=== PATIENT | female | born 1975 | race Caucasian/White ===

== ENCOUNTER 2020-08-28 00:40 | Emergency (ER) | payer BC, SELFPAY ==
[2020-08-28 00:41] VITALS: BP 132/82; PULSE 83; RESP 18; TEMP 36.2; O2SAT 96; BMI 34.2
--- NOTE | 2020-08-28 01:32 | ED.DCSUM_ITS ---
History of Present Illness Chief Complaint: Flank Pain Informant: Patient - Abdominal Pain/Flank Pain Onset: Hours - 3 Context: Gradual Onset Timing: Continuous, Waxes and wanes Quality: Aching Location: RUQ - And radiating into back on the right Current Severity: Moderate Maximum Severity: Severe Worsened by: Nothing Relieved by: Nothing - Nausea/Vomiting/Emesis GI Symptom: Nausea. Negative for: Vomiting - Diarrhea/Melena/Hematochezia GI Symptom: Negative for: Diarrhea, Melena, Hematochezia Associated Symptoms: Negative for: Dysuria, Frequency, Hematuria, Urgency Narrative: Patient started having colicky right flank pain several hours prior to arrival. Never had this before. No history of abdominal surgeries or other medical illness. She had a bowl of chili with cheese and sour cream on it around 2 or 3 hours prior to the onset. No urinary symptoms. No fevers or chills, shortness of breath, cough, she presents during the national coronavirus emergency declaration/pandemic. She denies any known contact with anyone infected with COVID-19. She denies traveling out of the immediate area recently. Past Medical History - Allergies and Home Meds Allergies/Adverse Reactions: Allergies No Known Allergies Allergy (Verified 08/28/20 00:41) Primary Care Physician: Emre Sierra MD [Primary Care Provider] - Past Medical History: None Lives: Spouse/ Significant Other Smoking Status: Never smoker Alcohol: Occasional Review of Systems General: Denies: Chills, Fever, Sweats Eyes: Denies: Visual changes - bilaterally, Diplopia ENT: Denies: Rhinorrhea, Sore throat Cardiovascular: Denies: Chest pain, Palpitations Respiratory: Denies: Dyspnea, Cough, Dyspnea on exertion Gastrointestinal: Reports: Abdominal pain, Nausea. Denies: Vomiting, Diarrhea, Melena, Hematochezia Genitourinary: Denies: Dysuria, Hematuria, Frequency Musculoskeletal: Reports: Back pain. Denies: Swelling, Extremity Pain Skin: Denies: Rash, Wounds Neurological: Denies: Headache, Weakness, Numbness Physical Exam Vital Signs/Narrative: Vital Signs Temp Pulse Resp BP Pulse Ox 08/28/20 00:41 97.2 F L 83 18 132/82 H 96 Inital Vital Signs reviewed: Yes General: Well nourished, Well developed, No Acute Distress Head: Normocephalic, Atraumatic Eyes: Perrl, EOMI ENT: Moist mucous membranes, No rhinorrhea Neck: Supple, Nontender Cardiovascular: Regular rate, Regular rhythm, No murmurs Respiratory: No distress, CTA bilaterally, Chest nontender Abdomen: Soft, Nondistended, Normal bowel sounds, Tender - Right upper quadrant, otherwise nontender. Negative for: Guarding, Rebound tenderness, Pulsatile mass Back: Nontender, Normal Inspection. Negative for: CVA tenderness Extremities: Nontender, No edema Skin: Normal color, No rash Neurological: Alert, Oriented x3, Cranial nerves II-XII grossly intact, Normal Strength, Normal Sensation, Normal Gait Psychological: Normal affect, Normal Mood Diagnostic/Tx/Re-eval Laboratory Results 08/28/20 08/28/20 08/28/20 00:50 00:50 01:40 WBC 7.9 RBC 4.34 Hgb 10.7 L Hct 35.2 L MCV 81.1 MCH 24.7 L MCHC 30.4 L RDW Std Deviation 45.8 H RDW Coeff of Gabi 15.5 H Plt Count 295 MPV 10.3 Immature Gran % (Auto) 0.100 Neut % (Auto) 47.2 Lymph % (Auto) 42.0 H [place] % (Auto) 8.4 Eos % (Auto) 1.8 Baso % (Auto) 0.5 Absolute Neuts (auto) 3.7 Absolute Lymphs (auto) 3.33 Nucleated RBC % 0 Sodium 140 Potassium 3.9 Chloride 109 H Carbon Dioxide 25.0 Anion Gap 6 BUN 12 Creatinine 0.93 Estim Creat Clear Calc 69.46 Est GFR (MDRD) Af Amer 84 Est GFR (MDRD) Non-Af 70 BUN/Creatinine Ratio 12.9 Glucose 106 Calcium 8.8 Total Bilirubin 0.20 AST 11 L ALT 13 Alkaline Phosphatase 55 Total Protein 7.7 Albumin 3.9 Globulin 3.8 Albumin/Globulin Ratio 1.0 Lipase 289 Urine Color Yellow Urine Clarity Clear Urine pH 5.0 Ur Specific [place] 1.030 Urine Protein 15 H Urine Glucose (UA) Normal Urine Ketones Negative Urine Occult Blood Negative Urine Nitrite Negative Urine Bilirubin Negative Urine Urobilinogen Normal Ur Leukocyte Esterase Negative Urine RBC 0 SEEN Urine WBC 0 SEEN Ur Squamous Epith Cells 0-5 SEEN Urine Bacteria 0 SEEN Urine Mucus 2+ - Medical Decision Making Patient having symptoms concerning for biliary colic. Certainly acute cholecystitis is in the differential diagnosis. Ultrasound is not here when the patient presented, so I did a bedside ultrasound, which confirmed a positive sonographic Mancilla's initially in addition to a gallbladder containing multiple stones that appear to be small bilirubin stones. I did not see any in the neck of the gallbladder, the gallbladder wall was grossly within normal limits and there was no pericholecystic fluid seen, however this is a limited screening bedside ultrasound. Her symptoms were treated, her labs are unremarkable/normal with no leukocytosis or signs of a leftward shift. Initially after 2 doses of morphine, she was still in discomfort although improved. I discussed with surgery Dr. Feuntes. Ultrasound will come in in the morning, so at that point if we observed her in the ED we would be able to obtain one if her pain did not resolve. Surgery recommended this if her pain did not resolve, however eventually, her pain did resolve, and on reevaluation, her abdomen is soft nontender and her Mancilla sign is resolved as it is completely her right upper quadrant tenderness. Now she feels fine. Therefore I think she is safe to be discharged home with a fat-free diet and close outpatient surgical follow-up, they are comfortable with this plan and getting an ultrasound as an outpatient which was set up for them. We discussed reasons to return as well. ED Disposition - Plan for ED Patient: Disposition: Home or Assisted Living Diagnosis: Cholelithiasis, Biliary colic Instructions: ED Gallstones with Biliary Colic, ED Low Fat Diet Referrals: Conrado Fuentes MD [STAFF PHYSICIAN] - As soon as possible (call for appt) Additional Instructions: Try to avoid fats in the diet, including animal meats, cheese, fried foods, milk fat. If you start having severe symptoms of that will not let up, certainly return to the ER for reevaluation and repeat labs.
[2020-08-28] MEDS: Ketorolac 30 MG/ML Syringe IV (01:42)
[2020-08-28] MEDS: Morphine 4 MG/ML Syringe IV ×2 (01:43→02:31)
[2020-08-28] MEDS: 0.9% Normal Saline 1,000 ML 125 ML IV (01:43)
[2020-08-28] MEDS: Ondansetron 4 MG/2 ML Vial IV (01:43)
[2020-08-28 01:45] LABS: Absolute Lymphocyte Count 3.33 X10^3/uL (0.83-4.51); Absolute Neutrophil Count 3.7 X10^3/uL (2.0-7.7); Basophil# 0.04 X10^3/uL; Basophil% 0.5 % (0-1); Eosinophil# 0.14 X10^3/uL; Eosinophils% 1.8 % (0-5); Hematocrit 35.2 % (37-47); Hemoglobin 10.7 g/dL (12.0-15.0); Lymphocyte # 3.33 X10^3/ul (4.0); Mean Corp Hgb Conc 30.4 g/dL (32-36); Mean Corpuscular Hgb 24.7 pg (27.0-32.0); Mean Corpuscular Volume 81.1 fL (81-99); Mean Platelet Vol. 10.3 fl (6.2-12.0); Monocyte# 0.67 X10^3/uL; Monocyte% 8.4 % (0-10); NRBC Flagged by Analyzer 0 % (0-5); Neutrophil # 3.74 X10^3/uL (2.7-7.7); Neutrophil % 47.2 % (47-70); Platelet Count 295 K/mm3 (150-450); RBC Distribution Width CV 15.5 % (11.6-14.6); RBC Distribution Width SD 45.8 fl (35.1-43.9); Red Blood Count 4.34 M/mm3 (4.2-5.4); White Blood Count 7.9 K/mm3 (4.4-11.0)
[2020-08-28 01:47] LABS: Bacteria 0 SEEN /hpf (None Seen); White Blood Cells 0 SEEN /hpf (0-5)
[2020-08-28 01:48] LABS: Color, Urine Yellow (Yellow); Glucose, Dipstick Normal (Normal); Ketone-Dipstick Negative (Negative); Leukocyte Esterase-Dipstick Negative /ul (Negative); Nitrite-Dipstick Negative (Negative); Occult Blood-Urine Negative /ul (Negative); Protein-Dipstick 15 mg/dl (Negative); Urine Bilirubin Dipstick Negative (Negative); Urine Clarity Clear (Clear); Urine Urobilinogen Normal (Normal)
[2020-08-28 01:57] LABS: AST(SGOT) 11 U/L (15-37); Alanine Aminotransfer ALT/SGPT 13 U/L (13-56); Albumin, Serum 3.9 g/dL (3.2-5.0); Alkaline Phosphatase 55 U/L (45-117); Anion Gap 6 (5-15); BUN 12 mg/dL (7-18); BUN/Creat Ratio 12.9 RATIO (10-20); Calcium,Total 8.8 mg/dL (8.5-10.1); Chloride 109 mmol/L (98-107); Creatinine, Serum 0.93 mg/dL (0.55-1.02); EST Glomerular Filtration Rate 70 mL/min (>60); Est Glom Filt Rate - Afr Amer 84 mL/min (>60); Estimated Creatinine Clearance 69.46 ml/min; Globulin 3.8 g/dL (2.2-4.2); Glucose 106 mg/dL (74-106); Lipase 289 U/L (73-393); Potassium 3.9 mmol/L (3.5-5.1); Protein, Total 7.7 g/dL (6.4-8.2); Sodium Level 140 mmol/L (136-145)
[2020-08-28 02:01] LABS: Mucous, Urine 2+ /hpf (<or=2+); Squamous Epithelial Cells - UA 0-5 SEEN /hpf (5-10)
[2020-08-28 02:02] LABS: Red Blood Cells-Urine 0 SEEN /hpf (0-5)
[2020-08-28 02:33] VITALS: BP 131/85; PULSE 74; RESP 18
[2020-08-28 02:58] VITALS: BP 117/72; PULSE 68; RESP 18
[2020-08-28] MEDS: HYDROmorphone 0.5 MG/0.5 ML SYRINGE IV (03:15)
[2020-08-28 03:18] VITALS: BP 115/75; PULSE 80; RESP 18
[2020-08-28 04:38] VITALS: RESP 16
== END 2020-08-28 04:42 | disposition home or self-care (01) ==
PROVIDERS: Emergency Provider Emergency Medicine
DX: K80.70 Calculus of gallbladder and bile duct without cholecystitis without obstruction (principal)
CPT/HCPCS: 80053; 81001; 83690; 85025; 96361; 96374; 96375; 96376; 99282; J7030; A4216; J2405

== ENCOUNTER → 2020-08-28 11:20 | Outpatient (CLI) | payer BC, SELFPAY ==
[2020-08-28 00:41] VITALS: BMI 34.2
--- NOTE | 2020-08-28 11:20 | US_ITS ---
STUDY: ABDOMINAL ULTRASOUND - RIGHT UPPER QUADRANT REASON FOR VISIT: Female, 44 years old RUQ PAIN TECHNIQUE: Ultrasound evaluation of the right upper quadrant was performed with real-time and static negron-scale imaging. TECHNICAL QUALITY: Adequate. COMPARISON: None. FINDINGS: Liver: The liver measures 16.7 cm. There is increased echogenicity consistent with fatty infiltration. The bile ducts are within normal limits. There is hepatic color flow. The direction of portal flow is hepatopetal. There is no demonstrated mass lesion. Gallbladder: Normal distended gallbladder. The gallbladder wall measures 2.6 mm. There is a negative sonographic Mancilla''s sign. There is no pericholecystic fluid. There are multiple echogenic structures within the gallbladder, consistent with multiple gallstones. Common Bile Duct (C.B.D.): The common bile duct measures 8.3 mm. Pancreas: Normal size of the head, body and tail of the pancreas. There is normal echogenicity of the pancreas. There is no demonstrated pancreatic mass or cyst. Right Kidney: Normal size of the right kidney. The right kidney measures 12.3 cm. Normal renal cortex. The right cortex measures 2.5 cm. There is no demonstrated renal mass or cyst. There is no right hydronephrosis. US/Gallbladder IMPRESSION: Multiple gallstones without evidence of acute cholecystitis Electronically Signed: Sabas Ahmadi DO at 12:36 EDT Tel , Service support ,
== END ==
PROVIDERS: Referring Provider Emergency Medicine; Visit Provider Emergency Medicine
DX: K80.20 Calculus of gallbladder without cholecystitis without obstruction (principal)
CPT/HCPCS: 76705

== ENCOUNTER 2020-09-08 10:48 | Day surgery (SDC) | payer BC, SELFPAY ==
[2020-09-02 08:32] VITALS: BMI 32.9
--- NOTE | 2020-09-07 08:22 | EKG12_ITS ---
Test Reason : PREOP Blood Pressure : / mmHG Vent. Rate : 071 BPM Atrial Rate : 071 BPM P-R Int : 164 ms QRS Dur : 086 ms QT Int : 390 ms P-R-T Axes : 010 006 023 degrees QTc Int : 423 ms Normal sinus rhythm Normal ECG Confirmed by PRISCLILA VORA, APOLINAR ([id number]), film or videotape editor KIRILL RAMIREZ ([id number]) on 09/08/2020 10:44:07 AM Referred By: Conrado Fuentes Confirmed By:APOLINAR WELLS MD
[2020-09-08] VITALS (12 sets, daily range): BP systolic 106–132; BP diastolic 59–90; PULSE 64–102; RESP 16; TEMP 36.1–36.5; O2SAT 94–100; BMI 32.5
--- NOTE | 2020-09-08 | GALL_PTH ---
PATIENT: LYNNE NOLEN LOC: [facility] U#:[id number] AGE/SX: 45/F ROOM: RE09/08/[address]: Dr. Conrado Fuentes MD : 1975 BED: DIS: 09/08/2020 SPEC #: [id number] RECD: 09/08/20 14:19 STATUS: AZUL LAURENCE #: [id number] JOSH: 09/08/20 00:[address]: Conrado Fuentes DEPT: SURGICAL PATHOLOGY RECD BY: Laura Inman ENTERED: 09/09/20 07:45 SP TYPE: ERIC ACEVEDO DR: Dr. Emre Sierra MD Tissues: Gallbladder, NOS Procedures: Surgery Specimen Level III HEADER OPERATION: Laparoscopic cholecystectomy with IOC PRE-OP DIAGNOSIS: Calculus of gallbladder TISSUE SUBMITTED: Gallbladder MICROSCOPIC DIAGNOSIS Gallbladder, cholecystectomy: Chronic cholecystitis and cholelithiasis. A pericystic lymph node with reactive changes. SJ:oracio 09/10/20 MICROSCOPIC DESCRIPTION Slides are reviewed. GROSS DESCRIPTION Received is one container labeled with the patient's name and designated gallbladder. The specimen consists of a gallbladder measuring 12 cm in length and up to 4 cm in diameter. The external surface is pink-martinez, smooth and glistening for the most part. Focally it is granular, hemorrhagic and contains cautery artifact. The gallbladder contains green-yellow mucoid bile and multiple martinez-brown, multifaceted stones measuring in aggregate 8 x 7 x 2.5 cm and 0.6 to 1 cm in greatest dimension. The mucosa is bile-stained and without any mass lesions. The gallbladder wall measures up to 0.2 cm in thickness. Also present close to the cystic duct is an ovoid piece of tissue, a possible lymph node, measuring 1 cm in greatest dimension. Non Licensed Operator sections from the gallbladder and the cystic duct including entire lymph node are submitted in one cassette. / ANU:oracio 09/09/20 TC:3 CPT: 64539
--- NOTE | 2020-09-08 11:00 | HP_ITS ---
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 Conrado Fuentes MD) Smoking Status: Never smoker HPI HPI HPI: LYNNE NOLEN, is a 45 F who presents to the office today for HPI HPI Surgical H&P: Yes HPI: LYNNE NOLEN, is a 45 F who presents to the office today for right upper quadrant pain. The patient was recently in the emergency room with right upper quadrant pain. She had had no symptoms before this. She reported the pain radiated to her back. She did not have any nausea or vomiting and the pain resolved. She has had some twinges of pain since being discharged but no pain like she did that day. She has been eating bland foods. She describes no fevers or chills or cough or shortness of breath. ROS General General: No weight change, appetite or fatigue HEENT HEENT: No difficulty swallowing, eye injury or eye surgery Endo Endocrine: No thyroid disease or diabetes mellitus Skin Skin: No rash or changing moles Musc Musculoskeletal: No back problems, arthritis or rheumatoid arthritis Cardio Cardiovascular: No murmur, pacemaker, heart disease, atrial fibrillation, high blood pressure, heart attack, heart stent, palpitations, shortness of breat with exertion or chest pain Psych Psychiatric: No depression or anxiety Resp Respiratory: No shortness of breath, No sleep apnea, No cough, No COPD, No asthma, No emphysema, No wheezing Gastro Gastrointestinal: Yes abdominal pain, No nausea or vomiting, No diarrhea, No constipation, No blood in stool, No acid reflux, Yes hemorrhoids, No ulcers, Yes gallbladder problem, No black,tarry stools Tay Hematologic: No blood thinners, No blood disorders Neuro Neurologic: Yes system reviewed and no additional complaints, except as docu Exam Const General: cooperative Orientation: alert, oriented x3 HENMT Head: normal to inspection Ears: hearing grossly normal bilaterally Eyes General: appearance normal, both eyes and all related structures Visual Perez: normal visual perez by confrontation Neck Neck: normal visual inspection Chest Chest palpation & inspection: normal inspection of the chest Resp Effort & Inspection: normal respiratory effort Auscultation: clear to auscultation bilaterally Cardio Rate: regular rate Rhythm: regular rhythm Heart Sounds: no murmurs GI Inspection: non-distended Palpation: soft, nontender Musc Cervical Spine: normal cervical lordosis, cervical ROM normal Skin General: no rashes or lesions noted Neuro General: alert, oriented x3 Cranial Nerves: CN's II-XI intact bilaterally Cognition: normal cognition Extrem General: normal to inspection, full ROM Psych Appearance: grossly normal Affect: normal affect Assessment & Plan Problems 1. Calculus of gallbladder without cholecystitis without obstruction K80.20 Plan The patient does not have any pain currently but she was in the emergency room recently with right upper quadrant pain. She had an ultrasound which showed no gallbladder wall thickening but copious amount of gallstones in the gallbladder. I discussed laparoscopic cholecystectomy with her. I discussed the procedure in detail with the patient. I discussed the risks, benefits, and alternatives of the procedure. I discussed the risks including but not limited to bleeding, infection, injury to surrounding organs such as the liver, bile duct, bowels. I did discuss the possibility of having to convert to an open procedure as well as the possibility that if any injuries occurred this may necessitate further surgery at a tertiary care center. We discussed the current risks associated with COVID-19. While it is understood that there is a community spread of COVID-19, the risk of navya COVID-19 while at [facility] ([facility]) is very low; however, the risk cannot be completely mitigated because of the community spread of the disease. We discussed in detail the risk of exposure to and/or potential harm posed by the COVID-19 virus with having a surgery/procedure at this time versus the risk of delaying the surgery/procedure. It is not possible to know either the risk of delaying the surgery or procedure or chance of getting an infection with perfect accuracy, but a joint decision was made to proceed at this time with the scheduled surgery/procedure as indicated on the consent form. Patient was notified that we will need to comply with any screening or testing [facility] wishes to perform or that surgery may be delayed for any positive results. Conrado Fuentes MD Pager: [facility] [address] [place] [address] [address] [place] [address] Office: Coding Level of Care Code Off vis,new,level 4 Diagnoses Calculus of gallbladder without cholecystitis without obstruction K80.20 ??Cholelithiasis location: gallbladder ??Cholecystitis presence: without cholecystitis ??Biliary obstruction: without biliary obstruction I have re-examined the patient. There are no clinical changes since date of exam.
[2020-09-08 11:21] LABS: Internal QC Validated? YES +Cl - CLEAR BKGD; Pregnancy, Urine Negative Negative
[2020-09-08] MEDS: Lactated Ringers 1,000 ML 100 ML IV ×2 (11:33→15:02)
[2020-09-08] MEDS: Cefotetan 2 GM in 0.9% NS 100 ML IV (12:05)
--- NOTE | 2020-09-08 12:14 | RAD_ITS ---
STUDY: INTRAOPERATIVE CHOLANGIOGRAM. REASON FOR EXAM: Female, 45 years old. Cholangiogram, pain FLUOROSCOPY TIME (if supplied): ( 15 seconds ) minutes/seconds. A cine loop of 101 images were submitted. TECHNIQUE: Intraoperative cholangiogram was performed by the surgeon. Imaging was submitted. COMPARISON: None. FINDINGS: The visualized intra and extrahepatic biliary ducts are unremarkable. No intraluminal filling defect is seen. There is free flow of contrast into the duodenum. RAD/Cholangiogram/ O R,Initial IMPRESSION: Unremarkable intraoperative cholangiogram. Electronically Signed: Joaquin Galan, at 15:47 EST , Service support ,
[2020-09-08] MEDS: Bupiv/Epi 0.25% 30 ML Vial (12:45)
--- NOTE | 2020-09-08 13:26 | PCM.OPRPT ---
Problem List (1) Cholelithiasis Status: Acute Qualifiers: Cholelithiasis location: gallbladder Cholecystitis presence: without cholecystitis Biliary obstruction: without biliary obstruction Qualified Code(s): K80.20 - Calculus of gallbladder without cholecystitis without obstruction Report of Operation Date of Procedure: 09/08/20 Pre-Operative Diagnosis: Cholelithiasis and biliary colic Post-Operative Diagnosis: Same Surgery/Procedure Performed:: Laparoscopic cholecystectomy with cholangiogram Specimen's removed: Gallbladder and contents Description of Procedure: After obtaining informed consent patient was brought back to the operating room. General anesthesia was induced. The abdomen was prepped and draped in usual sterile fashion. A small midline incision was made superior to the umbilicus and deepened to the level of fascia. The fascia was elevated and incised. Next the peritoneum was elevated and incised in the same fashion. Finger sweep was performed and the Schaffer trocar was placed into the abdomen. The balloon was inflated. The abdomen was inflated to 15 mmHg. Next a camera was introduced into the abdomen and the abdomen was inspected. Next under direct visualization three 5-mm ports were placed one subxiphoid and 2 subcostal. Next the gallbladder was elevated and retracted toward the right shoulder. The peritoneum was stripped from the gallbladder. The infundibulum was located and retracted laterally. Next the triangle of Calot was dissected and the cystic duct and cystic artery were identified. Cholangiograms were performed. The Shaw clamp was used to clamp across the infundibulum and the catheter needle was inserted into the gallbladder. There was no flow with the Shaw catheter. Next a small yesi was made in the right upper quadrant and a Ranfac catheter was placed into the abdomen and a clip was placed in the proximal cystic duct and a small yesi was made in the cystic duct and the Ranfac catheter was placed through this and a clamp was placed. There was good flushing with the Ranfac catheter. Under fluoroscopy contrast was instilled into the gallbladder and the common duct, cystic duct as well as proximal hepatic ducts were identified. There was good filling of the duodenum. There were no filling defects noted in the common bile duct. The catheter was removed and the infundibulum was grasped once more. Three hemolock clips were placed across the cystic duct. The cystic duct was then divided leaving 2 clips on the stump. The cystic artery was clipped and divided in the same fashion. The hook cautery was then used to take the gallbladder off of the gallbladder bed. Hemostasis was obtained. Gallbladder fossa was irrigated and no active bleeding or bile leakage was noted. Next the camera was introduced in the subxiphoid port. An Endopouch bag was placed through the umbilical port and the gallbladder was placed into it. The gallbladder was then removed through the umbilical incision. The camera was then reinserted through the umbilical port. The gallbladder fossa was inspected once more and noted to be hemostatic with no leaking bile. The abdomen was suctioned dry. The 5 mm ports were removed under direct visualization. The umbilical port was then removed and the air was removed from the abdomen. Next using an 0 Vicryl suture the umbilical fascia was closed in a [id number] fashion. The umbilical port site was irrigated local anesthetic was administered to all the incisions. All the incisions were closed with interrupted subcuticular 4-0 Monocryl sutures followed by Steri-Strips and dressings. The patient was awoken and taken to PACU in stable condition. - Admit VTE Documentation VTE Mechan Device Prophylaxis: SCD's
--- NOTE | 2020-09-08 13:29 | PCM.DC.GB ---
Discharge Diet: Light diet - advance as tolerated Discharge Activity: Return to Normal Activity, May Not Drive - for 2-3 days or while taking narcotic pain medicataions., - - Do not drive, work heavy equipment or sign legal documents for 24 hours. May shower in (days): 1 - with the bandage in place. Lifting Restrictions: 20 lbs for 2 weeks Additional Activity Instructions:: Pain medication may cause nausea. You should typically eat light foods as you take your pain medications. Pain medication may also cause constipation. If this is a problem for you, please discuss with your doctor. Call your doctor if your incision/area has: Continuous Slow Oozing, Sudden Increased Bleeding, Increased Pain/ Swelling, Increased Redness, Foul Smelling Discharge, Fever of 101 or Higher Call your doctor if you observe: Fever of 101 or Higher Suture Line Care: Avoid Pulling/Pushing, Avoid Pinching/Bending Additional Dressing/Incision Instructions:: Leave operative bandaids on for 2 days. When you remove dressing, leave Steri-Strips on until your follow-up appointment, or until the Steri-Strips fall off on their own. Allergies/Adverse Reactions: Allergies No Known Allergies Allergy (Verified 09/08/20 11:09) Medications to take at Discharge Oxycodone HCl/Acetaminophen [Percocet 5-325 mg Tablet] 1 - 2 tab PO Q6H PRN PRN 5 Days #30 tablet 09/08/20 The following prescriptions were given: Oxycodone HCl/Acetaminophen [Percocet 5-325 mg Tablet] 1 - 2 tab PO Q6H PRN PRN 5 Days #30 tablet PRN Reason: Pain Score 4-10/10 Transmission Status: Sent to [facility] Test Results: Test results from this visit will be discussed in further detail at your follow-up appointment, if applicable. Please Follow Up With: Conrado Fuentes MD When: Please call to schedule 2 week follow up appointment. [phone]
[2020-09-08] MEDS: Acetaminophen 325 MG Tablet PO (15:06)
[2020-09-08] MEDS: oxyCODONE 5 MG Tablet PO (15:07)
== END 2020-09-08 18:05 | disposition home or self-care (01) ==
LOC: SDC 10:49 → AC 10:50
PROVIDERS: Anesthesiology; Referring Provider Surgery; Visit Provider Surgery
PROC: (CPT 47610; principal; 2020-09-08 12:15)
DX: K80.10 Calculus of gallbladder with chronic cholecystitis without obstruction (principal); Z20.828 Contact with and (suspected) exposure to other viral communicable diseases; Z87.891 Personal history of nicotine dependence
CPT/HCPCS: 47563; 74300; 76000; 81025; 87426; 88304; 93005; C9803; J7120; J2405